=== PATIENT | female | born 1940 | race Caucasian/White ===

== ENCOUNTER 2019-02-11 09:31 | Emergency (ER) | payer MEDICARE ==
[2019-02-11 10:01] LABS: BASOPHILS % (AUTO) 0.4 % (0.0-5.0); HEMATOCRIT 32.1 % (36-48); LYMPHOCYTES % (AUTO) 31.9 % (21.0-51.0); MEAN CORPUSCULAR HEMOGLOBIN 38.3 pg (27.0-33.0); MEAN CORPUSCULAR HGB CONC 34.8 g/dL (32.0-36.0); MEAN CORPUSCULAR VOLUME 110.1 fL (79-99); MONOCYTES % (AUTO) 5.9 % (3.0-13.0); NEUTROPHILS % (AUTO) 60.8 % (40.0-77.0); NUCLEATED RED BLOOD CELLS 0.1 % (0.0-0.19); PLATELET COUNT (AUTO) 285 K/uL (130-400); RED BLOOD CELL COUNT(AUTO) 2.91 MIL/uL (4.00-5.50); RED CELL DISTRIBUTION WIDTH 15.5 % (11.0-15.5); WHITE BLOOD COUNT (AUTO) 7.3 K/uL (4.8-10.8)
[2019-02-11 10:19] LABS: INR 0.94 (0.85-1.15); PARTIAL THROMBOPLASTIN TIME 27.3 SEC (26.3-35.5); PROTHROMBIN TIME 9.9 SEC (9.6-11.6)
[2019-02-11 10:32] LABS: B-TYPE NATRIURETIC PEPTIDE 269 pg/mL (0-100)
[2019-02-11 10:37] LABS: ALBUMIN 2.7 g/dL (3.5-5.0); BILIRUBIN,TOTAL 0.6 mg/dL (0.2-1.0); CREATININE 1.2 mg/dL (0.5-1.5); TOTAL PROTEIN, SERUM 6.7 g/dL (6.0-8.3)
[2019-02-11 10:45] LABS: POTASSIUM 2.9 mmol/L (3.5-5.1)
[2019-02-11] MEDS ORDERED: POTASSIUM CHLORIDE 20 MEQ ERTAB PO ONE (11:04)
[2019-02-11 11:07] LABS: ERYTHROCYTE SEDIMENTATION RATE 53 MM/HR (0-30)
[2019-02-11] MEDS ORDERED: IOHEXOL-350 75 ML VIAL IV ONE ×2 (11:16→12:09)
[2019-02-11] MEDS ORDERED: TRAMADOL HCL 50 MG TABLET ONE (11:48)
[2019-02-11] MEDS ORDERED: CLINDAMYCIN 600 MG/D5% WATER 50 ML IV ONE (13:01)
[2019-02-11] MEDS ORDERED: KETOROLAC TROMETHAMINE 15MG/ML ONE (13:01)
== END 2019-02-11 14:04 | disposition home or self-care (01) ==
LOC: EDH 09:31
DX: L03.115 Cellulitis of right lower limb (principal); D64.89 Other specified anemias; I10 Essential (primary) hypertension; E78.5 Hyperlipidemia, unspecified; Z85.850 Personal history of malignant neoplasm of thyroid; Z90.89 Acquired absence of other organs; Z88.5 Allergy status to narcotic agent
CPT/HCPCS: 36415; 71045; 71275; 80053; 82550; 83605; 83880; 84484; 85025; 85378; 85610; 85651; 85730; 86140; 87040 ×2; 93005; 93971; 96365; 96375; 99285; J1885; J3490; Q9967 ×2

== ENCOUNTER → 2019-05-13 | Outpatient (CLI) | payer OTHER | END | disposition home or self-care (01) | LOC: RAH 13:33 | PROVIDERS: ATTEND Internal Medicine Cardiovascular Disease | DX: Z13.6 Encounter for screening for cardiovascular disorders (principal) | CPT/HCPCS: 75571 ==

== ENCOUNTER → 2019-05-20 | Outpatient (CLI) | payer MEDICARE | END | disposition home or self-care (01) | LOC: RAH 12:52 | PROVIDERS: ATTEND Internal Medicine Cardiovascular Disease | DX: R91.1 Solitary pulmonary nodule (principal); I25.10 Atherosclerotic heart disease of native coronary artery without angina pectoris; I70.0 Atherosclerosis of aorta; M47.819 Spondylosis without myelopathy or radiculopathy, site unspecified | CPT/HCPCS: 71250 ==

== ENCOUNTER 2020-02-19 20:23 | Inpatient (IN) | payer MEDICARE ==
[~2020-02-19] VITALS: Ht 170.2 cm; Wt 86.4 kg
[2020-02-19] MEDS ORDERED: FENTANYL CITRATE PF 50 MCG/1 ML 2ML VIAL ONE ×2 (20:42→21:39)
[2020-02-19 21:00] LABS: BASOPHILS % (AUTO) 0.6 % (0.0-5.0); EOSINOPHILS % (AUTO) 3.4 % (0.0-8.0); HEMATOCRIT 39.6 % (36-48); LYMPHOCYTES % (AUTO) 22.9 % (21.0-51.0); MEAN CORPUSCULAR HEMOGLOBIN 37.5 pg (27.0-33.0); MEAN CORPUSCULAR HGB CONC 35.9 g/dL (32.0-36.0); MEAN CORPUSCULAR VOLUME 104.5 fL (79-99); MONOCYTES % (AUTO) 8.1 % (3.0-13.0); NEUTROPHILS % (AUTO) 64.5 % (40.0-77.0); PLATELET COUNT (AUTO) 273 K/uL (130-400); RED BLOOD CELL COUNT(AUTO) 3.79 MIL/uL (4.00-5.50); RED CELL DISTRIBUTION WIDTH 16.2 % (11.0-15.5)
[2020-02-19 21:18] LABS: INR 0.99 (0.85-1.15); PARTIAL THROMBOPLASTIN TIME 25.9 SEC (26.3-35.5); PROTHROMBIN TIME 10.7 SEC (9.6-11.6)
[2020-02-19 22:32] LABS: CREATININE 1.1 mg/dL (0.5-1.5); POTASSIUM 3.8 mmol/L (3.5-5.1)
[2020-02-19 22:47] LABS: ALBUMIN 3.4 g/dL (3.5-5.0); BILIRUBIN,TOTAL 1.3 mg/dL (0.2-1.0); TOTAL PROTEIN, SERUM 7.8 g/dL (6.0-8.3)
[2020-02-19] MEDS ORDERED: SODIUM CHLORIDE 0.9% 1000ML 1,000 ML IV ONE (22:50)
[2020-02-19] MEDS ORDERED: HYDROMORPHONE HCL 0.5 MG/0.5 ML ML ONE (22:55)
[2020-02-19] MEDS ORDERED: IOHEXOL-350 75 ML VIAL IV ONE (23:17)
[2020-02-20 00:10] LABS: APPEARANCE,URINE Clear (CLEAR); BILIRUBIN,URINE Negative (NEGATIVE); COLOR,URINE Yellow (YELLOW); GLUCOSE, URINE (UA) Negative (NEGATIVE); KETONES,URINE Negative (NEGATIVE); LEUKOCYTE ESTERASE ,URINE Trace (NEGATIVE); NITRATE,URINE Negative (NEGATIVE); OCCULT BLOOD,URINE Negative (NEGATIVE); PH,URINE 6.5 (5.0-8.0); PROTEIN,URINE Negative (NEGATIVE)
[2020-02-20 00:30] LABS: BACTERIA,URINE None Seen /HPF (None Seen); RBC,URINE None Seen /HPF (0-1); SQUAMOUS EPITHELIAL CELL,UR Few /HPF (0-2); WBC,URINE 0-1 /HPF (0-1)
[2020-02-20] MEDS ORDERED: KETOROLAC TROMETHAMINE 15MG/ML IV PRN (01:30)
[2020-02-20] MEDS ORDERED: CEFTRIAXONE SODIUM 1 GM IVP SCH (01:30)
[2020-02-20] MEDS ORDERED: ONDANSETRON HCL 4 MG/2 ML VIAL IV PRN (01:30)
[2020-02-20] MEDS ORDERED: AZITHROMYCIN 500MG+NS 250ML 250 ML IV SCH (01:30)
[2020-02-20] MEDS ORDERED: CEFTRIAXONE SODIUM 1 GM ONE (01:45)
[2020-02-20] MEDS ORDERED: AZITHROMYCIN 250 MG TABLET PO ONE (01:46)
[2020-02-20 04:15] VITALS: BP 163/69
[2020-02-20] MEDS ORDERED: ISOS10TA8 PO (06:21)
[2020-02-20] MEDS ORDERED: FURO20TA6 PO (06:21)
[2020-02-20] MEDS ORDERED: METO-409 PO (06:21)
[2020-02-20] MEDS ORDERED: OMEP20TA25 PO (06:21)
[2020-02-20] MEDS ORDERED: NITR0.4T50 SL (06:21)
[2020-02-20] MEDS ORDERED: LOSA1TAB54 PO (06:21)
[2020-02-20] MEDS ORDERED: AMLO-257 PO (06:21)
[2020-02-20] MEDS ORDERED: LEVO150T11 PO (06:21)
[2020-02-20] MEDS ORDERED: ROSU10TA28 PO (06:21)
[2020-02-20 06:52] LABS: BASOPHILS % (AUTO) 0.5 % (0.0-5.0); HEMATOCRIT 35.8 % (36-48); LYMPHOCYTES % (AUTO) 21.1 % (21.0-51.0); MEAN CORPUSCULAR HEMOGLOBIN 36.8 pg (27.0-33.0); MEAN CORPUSCULAR HGB CONC 35.5 g/dL (32.0-36.0); MEAN CORPUSCULAR VOLUME 103.8 fL (79-99); MONOCYTES % (AUTO) 8.2 % (3.0-13.0); NEUTROPHILS % (AUTO) 67.9 % (40.0-77.0); PLATELET COUNT (AUTO) 235 K/uL (130-400); RED BLOOD CELL COUNT(AUTO) 3.45 MIL/uL (4.00-5.50); RED CELL DISTRIBUTION WIDTH 16.1 % (11.0-15.5); WHITE BLOOD COUNT (AUTO) 9.1 K/uL (4.8-10.8)
[2020-02-20 07:24] LABS: ALANINE AMINOTRANSFERASE 26 U/L (12-78); ASPARTATE AMINOTRANSFERASE 21 U/L (10-37); CARBON DIOXIDE 27 mmol/L (21-32); CHLORIDE 97 mmol/L (101-111); CHOLESTEROL 128 mg/dL (<200); CREATINE KINASE, TOTAL 17 U/L (21-232); CREATININE 1.1 mg/dL (0.5-1.5); GLOMERULAR FILTR. RATE CALC 51 mL/min (>60); GLUCOSE,RANDOM 125 mg/dL (70-105); HDL CHOLESTEROL 65 mg/dL (35-85); LDL DIRECT 59 mg/dL (0-99); MYOGLOBIN 35 ng/mL (10-92); POTASSIUM 3.4 mmol/L (3.5-5.1); SODIUM SERUM 132 mmol/L (136-145); TRIGLYCERIDES 31 mg/dL (30-200); TROPONIN I < 0.04 ng/mL (0.00-0.06); UREA NITROGEN, BLOOD 9 mg/dL (7-18)
[2020-02-20 07:31] LABS: HEMOGLOBIN A1C 5.1 % (4.0-6.0)
[2020-02-20] MEDS: ASPIRIN 81MG TAB.CHEW PO SCH (08:11)
[2020-02-20] MEDS: FAMOTIDINE/PF 20 MG/2 ML VIAL IV SCH ×2 (08:11→20:37)
[2020-02-20 08:30] VITALS: BP 157/69
[2020-02-20] MEDS ORDERED: ENOXAPARIN SODIUM 30 MG/0.3 ML SQ SCH (09:00)
[2020-02-20] MEDS ORDERED: METHYLPREDNISOLONE SOD SUCC 40MG/ML 1ML IVP SCH (09:00)
--- NOTE | 2020-02-20 10:20 | NUR ---
DR. COWAN AWARE OF CASE ADD TO LIST.
[2020-02-20 13:40] VITALS: BP 161/77
[2020-02-20] MEDS ORDERED: LIDOCAINE 5% TOPICAL PATCH TP SCH (13:40)
--- NOTE | 2020-02-20 14:34 | NUR ---
DC PLAN VISITED WITH PATIENT. PATIENT LIVES WITH FRIEND. INDEPENDENT ABLE TO PERFORM ADL'S. PATIENT HAS NO SERVICES OR DME'S. FEELS SAFE TO RETURN HOME. ASKED FOR [facility] SAID SECURITY DID NOT ALLOW IN [facility]. LEFT MESSAGE FOR [facility]. LET CHARGE NURSE KNOW. Addendum: 02/20/20 at 1437 by AYSHA LOAIZA RN CM Amended: Links added.
--- NOTE | 2020-02-20 16:20 | NUR ---
COVID19 TEST SEND
[2020-02-20] MEDS ORDERED: LIDOCAINE 5% TOPICAL PATCH TP ONE (16:23)
[2020-02-20] MEDS: PANTOPRAZOLE SODIUM 40 MG TABLET.DR PO SCH (16:24)
[2020-02-20] MEDS: AZITHROMYCIN 250 MG TABLET PO SCH (16:28)
[2020-02-20 17:09] LABS: LACTATE DEHYDROGENASE 170 U/L (81-234)
[2020-02-20 17:40] VITALS: BP 158/65
--- NOTE | 2020-02-20 18:53 | NUR ---
PT TRANSFERRED TO COVID UNIT REPORT GIVEN TO DAVID ESPITIA.
--- NOTE | 2020-02-20 18:57 | NUR ---
CRITICAL DDIMER RESULTS CONVEYED TO OMKAR HERNANDEZ SINCE PATIENT WAS TRANSFERRED TO COVID UNIT.
[2020-02-20 20:00] VITALS: BP 164/73
[2020-02-20] MEDS: ISOSORBIDE MONONITRATE 20 MG TABLET PO SCH (20:36)
[2020-02-20] MEDS: METOPROLOL SUCCINATE 50 MG TAB.SR.24H PO SCH (20:36)
[2020-02-20] MEDS: METHYLPREDNISOLONE SOD SUCC 40MG/ML 1ML IVP SCH (20:36)
[2020-02-20] MEDS: ATORVASTATIN CALCIUM 20 MG TABLET PO SCH (20:36)
[2020-02-20] MEDS: ENOXAPARIN SODIUM 80 MG/0.8 ML SQ SCH (20:37)
[2020-02-20] MEDS ORDERED: POTASSIUM CHLORIDE 10% ELIXIR 20 MEQ/15 ML UDCUP PO PRN (21:15)
[2020-02-21] VITALS: BP 129/66
[2020-02-21 04:00] VITALS: BP 131/69
[2020-02-21] MEDS: POTASSIUM CHLORIDE 20 MEQ ERTAB PO PRN ×2 (05:20→06:49)
[2020-02-21] MEDS: LEVOTHYROXINE 150 MCG TABLET PO SCH (06:48)
[2020-02-21 07:30] VITALS: BP 137/65
[2020-02-21] MEDS: METHYLPREDNISOLONE SOD SUCC 40MG/ML 1ML IVP SCH ×2 (07:58→19:40)
[2020-02-21] MEDS: PANTOPRAZOLE SODIUM 40 MG TABLET.DR PO SCH (07:58)
[2020-02-21] MEDS: AMLODIPINE BESYLATE 5 MG TAB PO SCH (07:58)
[2020-02-21] MEDS: FAMOTIDINE/PF 20 MG/2 ML VIAL IV SCH ×2 (07:58→19:40)
[2020-02-21] MEDS: ASPIRIN 81MG TAB.CHEW PO SCH (07:58)
[2020-02-21] MEDS: ENOXAPARIN SODIUM 80 MG/0.8 ML SQ SCH ×2 (07:59→19:41)
--- NOTE | 2020-02-21 08:00 | NUR ---
ASSESSMENT PT IS AAO3 DENIES CP DENIES SOB DENIES NV DENIES ABD PAIN. RESTING IN BED. CALL LIGHT WITHIN REACH.
[2020-02-21] MEDS ORDERED: FUROSEMIDE 20 MG TABLET PO SCH (09:00)
[2020-02-21 10:08] LABS: MEAN CORPUSCULAR HEMOGLOBIN 37.4 pg (27.0-33.0); MEAN CORPUSCULAR HGB CONC 35.6 g/dL (32.0-36.0); MEAN CORPUSCULAR VOLUME 105.3 fL (79-99); RED BLOOD CELL COUNT(AUTO) 3.42 MIL/uL (4.00-5.50); RED CELL DISTRIBUTION WIDTH 15.9 % (11.0-15.5); WHITE BLOOD COUNT (AUTO) 12.4 K/uL (4.8-10.8)
[2020-02-21 10:36] LABS: BILIRUBIN,TOTAL 0.8 mg/dL (0.2-1.0); POTASSIUM 3.9 mmol/L (3.5-5.1); TOTAL PROTEIN, SERUM 7.4 g/dL (6.0-8.3)
[2020-02-21 10:56] LABS: CREATININE 1.3 mg/dL (0.5-1.5)
[2020-02-21 11:30] VITALS: BP 141/59
[2020-02-21 15:30] VITALS: BP 141/57
[2020-02-21] MEDS: AZITHROMYCIN 250 MG TABLET PO SCH (16:17)
--- NOTE | 2020-02-21 16:48 | NUR ---
DCP NO DC NEEDS ANTICIPATED. CM TO FOLLOW Addendum: 02/21/20 at 1648 by HOME DUFFY RN CM Amended: Links added.
[2020-02-21] MEDS ORDERED: IOHEXOL-350 75 ML VIAL IV ONE (17:24)
[2020-02-21] MEDS: SODIUM CHLORIDE 0.9% 1000ML 1,000 ML IV SCH (17:56)
--- NOTE | 2020-02-21 18:46 | NUR ---
REGARDING CT RESULTS SPOKE WITH SINAY FROM RADIOLOGY, TOLD HER ABOUT CONFLICTING +PE VS NEGATIVE PE, STATES SHE WILL LET RADIOLOGIST KNOW.
[2020-02-21 19:38] VITALS: BP 151/74
[2020-02-21] MEDS: METOPROLOL SUCCINATE 50 MG TAB.SR.24H PO SCH (19:40)
[2020-02-21] MEDS: ISOSORBIDE MONONITRATE 20 MG TABLET PO SCH (19:40)
[2020-02-21] MEDS: ATORVASTATIN CALCIUM 20 MG TABLET PO SCH (19:40)
[2020-02-22 00:47] VITALS: BP 142/81
[2020-02-22] MEDS: SODIUM CHLORIDE 0.9% 1000ML 1,000 ML IV SCH ×2 (03:15→14:00)
[2020-02-22 04:56] VITALS: BP 132/66
[2020-02-22 05:53] LABS: CREATININE 1.1 mg/dL (0.5-1.5); POTASSIUM 4.6 mmol/L (3.5-5.1)
[2020-02-22] MEDS: LEVOTHYROXINE 150 MCG TABLET PO SCH (06:42)
[2020-02-22 07:30] VITALS: BP 144/69
[2020-02-22] MEDS: AMLODIPINE BESYLATE 5 MG TAB PO SCH (08:50)
[2020-02-22] MEDS: ASPIRIN 81MG TAB.CHEW PO SCH (08:50)
[2020-02-22] MEDS: PANTOPRAZOLE SODIUM 40 MG TABLET.DR PO SCH (08:50)
[2020-02-22] MEDS: METHYLPREDNISOLONE SOD SUCC 40MG/ML 1ML IVP SCH (08:51)
[2020-02-22] MEDS: FAMOTIDINE/PF 20 MG/2 ML VIAL IV SCH (08:51)
[2020-02-22] MEDS: ENOXAPARIN SODIUM 80 MG/0.8 ML SQ SCH (08:52)
[2020-02-22 11:30] VITALS: BP 156/69
[2020-02-22] MEDS: AZITHROMYCIN 250 MG TABLET PO SCH (15:03)
[2020-02-22 16:00] VITALS: BP 148/83
--- NOTE | 2020-02-22 16:57 | NUR ---
Eliquis Medication LEE called patient's pharmacy - [facility] on [address] [place] and spoke to Sarika Latif museum exhibit technician regarding pending prescription of Eliquis for patient. As per patient's nurse, MD will order Eliquis 5mg - 2 tablets X 7 days and then 2 tablets after that. Locke quote provided to LEE by [facility] outside plant field engineer was $33 a month. Patient and patient's daughter, Amelia Germain, were notified. Prescription will need to be sent electronically or faxed to . Patient's nurse made aware.
[2020-02-22 19:50] VITALS: BP 133/72
[2020-02-22] MEDS: ISOSORBIDE MONONITRATE 20 MG TABLET PO SCH (20:27)
[2020-02-22] MEDS: APIXABAN 5 MG TABLET PO SCH (20:27)
[2020-02-22] MEDS: ATORVASTATIN CALCIUM 20 MG TABLET PO SCH (20:28)
[2020-02-22] MEDS: METOPROLOL SUCCINATE 50 MG TAB.SR.24H PO SCH (20:28)
[2020-02-23 00:02] VITALS: BP 150/68
[2020-02-23 04:00] VITALS: BP 139/65
[2020-02-23] MEDS: LEVOTHYROXINE 150 MCG TABLET PO SCH (06:10)
[2020-02-23 07:55] VITALS: BP 166/72
[2020-02-23] MEDS ORDERED: APIX5TAB PO (08:58)
[2020-02-23] MEDS ORDERED: METO-391 PO (08:59)
[2020-02-23] MEDS: PANTOPRAZOLE SODIUM 40 MG TABLET.DR PO SCH (09:10)
[2020-02-23] MEDS: ASPIRIN 81MG TAB.CHEW PO SCH (09:10)
[2020-02-23] MEDS: AMLODIPINE BESYLATE 5 MG TAB PO SCH (09:10)
[2020-02-23] MEDS: APIXABAN 5 MG TABLET PO SCH (09:11)
--- NOTE | 2020-02-23 11:23 | NUR ---
DC PLAN SPOKE TO NURSE SAID POSSIBLE DC HOME TODAY. REMINDED OF [facility] [address] FOR $33. SAID SCRIPT HAD BEEN EFAXED TO [facility] [address]. Addendum: 02/23/20 at 1124 by AYSHA LOAIZA RN CM Amended: Links added.
[2020-02-23 11:45] VITALS: BP 159/77
[2020-02-23] MEDS ORDERED: HYDRALAZINE HCL 20 MG/ML VIAL IV SCH (13:35)
--- NOTE | 2020-02-23 14:30 | NUR ---
DISCHARGE INSTRUCTIONS GIVEN TO PATIENT, MADE AWARE OF FOLLOW UP APPOINTMENT WITH DR. TELLEZ (PUL[place]), MADE AWARE DR. ARROYO OFFICE NOT ANSWERING UNABLE TO MAKE FOLLOW UP APPOINTMENT. INSTRUCTED TO FOLLOW UP WITH DR. ARROYO IN 3-5 DAYS. INSTRUCTED ON HOW TO TAKE ELIQUIS WELL CHANGES TO METOPROLOL. PATIENT AT THIS TIME AMBULATING IN ROOM, DENIES SHORTNESS OF BREATH, SATURATING 96% ON ROOM AIR. NO SIGNS AND SYMPTOMS OF ACUTE DISTRESS NOTED. IV REMOVED. PATIENT WILL BE PICKED UP BY HER DAUGHTER
[2020-02-27] MEDS ORDERED: APIXABAN 5 MG TABLET PO SCH (21:00)
== END 2020-02-23 15:30 | disposition home or self-care (01) | DRG 176 ==
LOC: EDH 20:23 → EDHIP 02-20 01:26 → 3DH 02-20 03:46 → 2DH 02-20 19:07
PROVIDERS: ADMIT Internal Medicine; ATTEND Internal Medicine
DX: I26.99 Other pulmonary embolism without acute cor pulmonale (principal); J98.11 Atelectasis; R07.81 Pleurodynia; G62.9 Polyneuropathy, unspecified; K57.30 Diverticulosis of large intestine without perforation or abscess without bleeding; E78.5 Hyperlipidemia, unspecified; I10 Essential (primary) hypertension; E03.9 Hypothyroidism, unspecified; R06.89 Other abnormalities of breathing; Z20.828 Contact with and (suspected) exposure to other viral communicable diseases; Z98.42 Cataract extraction status, left eye; Z98.41 Cataract extraction status, right eye; Z85.850 Personal history of malignant neoplasm of thyroid; Z88.5 Allergy status to narcotic agent
CPT/HCPCS: 36415; 71045; 71275; 74177; 80048; 80053; 80061; 81001; 82550; 82607; 82728; 82746; 83036; 83605; 83615; 83690; 83874; 83880; 84145; 84443; 84484; 85025; 85027; 85378; 85610; 85730; 86140; 87040; 87486; 87581; 87633; 87635; 87798; 93005; G0378; J0360; J0696; J1170; J1650; J1885; J2920; J3010; J3490; J7030; Q9967

== ENCOUNTER → 2020-03-15 | Outpatient (CLI) | payer MEDICARE | END | disposition home or self-care (01) | LOC: LAB 10:53 | PROVIDERS: ATTEND Internal Medicine Critical Care Medicine | DX: I26.99 Other pulmonary embolism without acute cor pulmonale (principal); R20.2 Paresthesia of skin; G47.10 Hypersomnia, unspecified; I10 Essential (primary) hypertension ==

== ENCOUNTER 2023-02-11 08:53 | Emergency (ER) | payer MEDICARE ==
[~2023-02-11] VITALS: Ht 170.2 cm; Wt 77.1 kg
[~2023-02-11 08:53] MED LIST: AMLO-257 PO; APIX5TAB PO; FURO20TA6 PO; ISOS10TA8 PO; LEVO150T11 PO; LOSA1TAB54 PO; METO-391 PO; NITR0.4T50 SL; OMEP20TA20 PO; ROSU10TA28 PO
[2023-02-11 08:54] VITALS: BP 180/82
[2023-02-11 09:17] LABS: HEMATOCRIT 25.3 % (36-48); LYMPHOCYTES % (AUTO) 31.4 % (21.0-51.0); MEAN CORPUSCULAR HEMOGLOBIN 35.7 pg (27.0-33.0); MEAN CORPUSCULAR HGB CONC 35.2 g/dL (32.0-36.0); MEAN CORPUSCULAR VOLUME 101.6 fL (79-99); PLATELET COUNT (AUTO) 320 K/uL (130-400); RED BLOOD CELL COUNT(AUTO) 2.49 MIL/uL (4.00-5.50); RED CELL DISTRIBUTION WIDTH 17.7 % (11.0-15.5); WHITE BLOOD COUNT (AUTO) 7.2 K/uL (4.8-10.8)
[2023-02-11 09:24] LABS: CREATININE 0.9 mg/dL (0.5-1.5); POTASSIUM 3.2 mmol/L (3.5-5.1)
[2023-02-11 09:29] LABS: ALBUMIN 3.4 g/dL (3.5-5.0); TOTAL PROTEIN, SERUM 6.8 g/dL (6.0-8.3)
[2023-02-11] MEDS ORDERED: KCL 20 MEQ ERTAB PO ONE (10:00)
== END 2023-02-11 12:53 | disposition home or self-care (01) ==
LOC: EDH 08:53
DX: D64.9 Anemia, unspecified (principal); E87.6 Hypokalemia; E11.9 Type 2 diabetes mellitus without complications; E78.00 Pure hypercholesterolemia, unspecified; I10 Essential (primary) hypertension; Z79.01 Long term (current) use of anticoagulants; Z79.899 Other long term (current) drug therapy; Z88.5 Allergy status to narcotic agent
CPT/HCPCS: 36415; 80053; 85025

== ENCOUNTER 2023-06-28 08:26 | Emergency (ER) | payer MEDICARE ==
[2023-06-28] MEDS ORDERED: 0.9%NACL 1000ML 1,000 ML IV ONE (16:00)
[2023-06-29 13:38] LABS: ALBUMIN 3.3 g/dL (3.5-5.0); BILIRUBIN,TOTAL 0.6 mg/dL (0.2-1.0); CREATININE 0.8 mg/dL (0.5-1.5); POTASSIUM 3.2 mmol/L (3.5-5.1); TOTAL PROTEIN, SERUM 6.8 g/dL (6.0-8.3)
[2023-06-29 14:10] LABS: BASOPHILS # (AUTO) 0.05 K/uL (0.00-0.20); BASOPHILS % (AUTO) 0.7 % (0.0-5.0); EOSINOPHILS # (AUTO) 0.01 K/uL (0.00-0.70); EOSINOPHILS % (AUTO) 0.1 % (0.0-8.0); HEMATOCRIT 31.1 % (36-48); IMMATURE GRANULOCYTE ABSOLUTE 0.06 K/uL (0-1); LYMPHOCYTES # (AUTO) 1.7 K/uL (1.0-4.8); MEAN CORPUSCULAR HEMOGLOBIN 36.5 pg (27.0-33.0); MONOCYTES # (AUTO) 0.4 K/uL (0.1-1.0); MONOCYTES % (AUTO) 4.9 % (3.0-13.0); NEUTROPHILS # (AUTO) 5.3 K/uL (1.8-7.7); NEUTROPHILS % (AUTO) 70.5 % (40.0-77.0); PLATELET COUNT (AUTO) 343 K/uL (130-400); RED BLOOD CELL COUNT(AUTO) 2.99 MIL/uL (4.00-5.50); RED CELL DISTRIBUTION WIDTH 17.4 % (11.0-15.5); WHITE BLOOD COUNT (AUTO) 7.5 K/uL (4.8-10.8)
== END 2023-06-28 17:13 | disposition home or self-care (01) ==
LOC: EDH 08:26
DX: E86.0 Dehydration (principal); R42 Dizziness and giddiness; E11.9 Type 2 diabetes mellitus without complications; E78.00 Pure hypercholesterolemia, unspecified; Z79.01 Long term (current) use of anticoagulants; Z79.899 Other long term (current) drug therapy; Z85.850 Personal history of malignant neoplasm of thyroid; Z88.5 Allergy status to narcotic agent
CPT/HCPCS: 99284; 96360; 70450; 71045 ×2; 84484; 80053; 85025; 85378; 36415; J7030

== ENCOUNTER → 2023-10-26 | Outpatient (CLI) | payer MEDICARE | END | disposition home or self-care (01) | LOC: RAH 13:54 | PROVIDERS: ATTEND Internal Medicine Critical Care Medicine | DX: I26.99 Other pulmonary embolism without acute cor pulmonale (principal); Z86.711 Personal history of pulmonary embolism | CPT/HCPCS: 93970 ==